=== PATIENT | male | born 1960 | race Caucasian/White ===

== ENCOUNTER 2017-08-16 10:10 | Inpatient (IN) | payer SELFPAY ==
[~2017-08-16] VITALS: Ht 167.6 cm; Wt 91.2 kg
[2017-08-16] MEDS ORDERED: ONDANSETRON HCL 4MG/2ML VIAL IV STA (10:47)
[2017-08-16] MEDS ORDERED: MORPHINE SULFATE 4 MG/ML CPJ (NOT FOR IM USE) IV STA (10:47)
[2017-08-16] MEDS ORDERED: VANCOMYCIN 1 G PREMIX 200 ML IV ONE (11:00)
[2017-08-16] MEDS ORDERED: PIPERACILLIN/TAZ 3.375G PREMIX 50 ML IV ONE (11:00)
[2017-08-16 11:32] LABS: BASOPHILS % 1.2 % (0.0-2.0); EOSINOPHILS % 5.5 % (0.0-5.0); HEMATOCRIT. 40.6 % (42.0-52.0); HEMOGLOBIN. 13.9 g/dL (14.0-18.0); LYMPHOCYTES % 26.6 % (20.0-50.0); MEAN CORPUSCULAR HEMOGLOBIN 30.2 pg (28.0-32.0); MEAN CORPUSCULAR VOLUME 88.2 fL (80.0-94.0); MEAN PLATELET VOLUME 7.9 fl (7.4-10.4); MONOCYTES % 6.4 % (2.0-8.0); NEUTROPHILS % 60.3 % (40.0-76.0); PLATELET 259 x1000/uL (130-400); RED CELL DISTRIBUTION WIDTH 12.9 % (11.6-14.6)
[2017-08-16 11:41] LABS: CHLORIDE 104 mEq/L (98-107)
[2017-08-16 11:43] LABS: PROTHROMBIN TIME 10.5 sec (9.4-11.6)
[2017-08-16 11:46] LABS: ETHANOL BLOOD < 10 mg/dL
[2017-08-16] MEDS ORDERED: CLONIDINE 0.2MG TABLET PO ONE (12:30)
[2017-08-16] MEDS ORDERED: CLONIDINE 0.2MG TABLET PO PRN (15:15)
[2017-08-16] MEDS ORDERED: DEXTROSE 50% WATER 50ML SYRINGE IV PRN (15:15)
[2017-08-16] MEDS ORDERED: DOCUSATE SODIUM 100MG CAPSULE PO PRN (15:15)
[2017-08-16] MEDS ORDERED: MAGNESIUM/ALUMINUM HYDROXIDE/SIMETHICONE 30ML UDC PO PRN (15:15)
[2017-08-16] MEDS ORDERED: PIPERACILLIN/TAZ 3.375G PREMIX 50 ML IV SCH (15:15)
[2017-08-16] MEDS ORDERED: IPRATROPIUM/ALBUTEROL 0.5-3(2.5)MG/3ML NEB INH PRN (15:15)
[2017-08-16] MEDS ORDERED: GUAIFENESIN 200MG/10ML SUGAR FREE UDC PO PRN (15:15)
[2017-08-16] MEDS ORDERED: KETOROLAC 15MG/ML VIAL IV PRN (15:15)
[2017-08-16] MEDS ORDERED: ZOLPIDEM TARTRATE 5MG TABLET PO PRN (15:15)
[2017-08-16] MEDS ORDERED: NA PHOS,M-B/NA PHOS,DI-BA ENEMA 118ML PR PRN (15:15)
[2017-08-16] MEDS ORDERED: ONDANSETRON HCL 4MG/2ML VIAL IV PRN (15:15)
[2017-08-16] MEDS ORDERED: ENOXAPARIN 40MG/0.4ML SYR SUBCUT SCH (15:15)
[2017-08-16] MEDS ORDERED: NITROGLYCERIN 0.4MG TABLET SL SL PRN (15:15)
[2017-08-16] MEDS ORDERED: ACETAMINOPHEN 325MG TABLET PO PRN (15:15)
[2017-08-16] MEDS ORDERED: LORAZEPAM 0.5MG TABLET PO PRN (15:15)
[2017-08-16] MEDS ORDERED: VANCOMYCIN 1 G PREMIX 200 ML IV SCH (15:15)
[2017-08-16 15:20] VITALS: BP 173/88
[2017-08-16] MEDS: AMLODIPINE 10MG TABLET PO SCH (16:12)
[2017-08-16] MEDS: BLOOD SUGAR DIAGNOSTIC STRIP TEST SCH ×2 (16:38→21:39)
[2017-08-16] MEDS: INSULIN LISPRO 100 UNITS/ML SUBCUT SCH ×2 (16:58→21:52)
[2017-08-16] MEDS ORDERED: IBUP-2030 MT (17:00)
[2017-08-16] MEDS ORDERED: VANCOMYCIN 1 G PREMIX 200 ML IV NR (17:00)
[2017-08-16] MEDS ORDERED: SITA1TAB2 MT (17:02)
[2017-08-16] MEDS: PIPERACILLIN/TAZ 3.375G PREMIX 50 ML IV SCH (17:20)
[2017-08-16 20:00] VITALS: BP 132/76
[2017-08-16] MEDS: ENOXAPARIN 30MG/0.3ML SYR SUBCUT SCH (21:38)
[2017-08-16] MEDS: METOPROLOL TARTRATE 25MG TABLET PO SCH (21:39)
[2017-08-16] MEDS: ASCORBIC ACID 500 MG TABLET PO SCH (21:39)
[2017-08-16] MEDS: LISINOPRIL 20MG TABLET PO SCH (21:39)
[2017-08-17] VITALS: BP 128/77
[2017-08-17] MEDS: PIPERACILLIN/TAZ 3.375G PREMIX 50 ML IV SCH ×2 (00:29→05:17)
[2017-08-17] MEDS: VANCOMYCIN 1 G PREMIX 200 ML IV SCH ×2 (01:57→08:03)
[2017-08-17 04:00] VITALS: BP 128/70
[2017-08-17] MEDS: BLOOD SUGAR DIAGNOSTIC STRIP TEST SCH ×2 (06:12→11:59)
[2017-08-17] MEDS: INSULIN LISPRO 100 UNITS/ML SUBCUT SCH ×2 (06:12→12:14)
[2017-08-17 08:00] VITALS: BP_SYST 114; BP_SYST 146; BP_DIAS 70; BP_DIAS 79
[2017-08-17] MEDS: METOPROLOL TARTRATE 25MG TABLET PO SCH (08:04)
[2017-08-17] MEDS: LISINOPRIL 20MG TABLET PO SCH (08:04)
[2017-08-17] MEDS: AMLODIPINE 10MG TABLET PO SCH (08:05)
[2017-08-17] MEDS: ENOXAPARIN 30MG/0.3ML SYR SUBCUT SCH (08:05)
[2017-08-17] MEDS: ASCORBIC ACID 500 MG TABLET PO SCH (08:05)
[2017-08-17] MEDS ORDERED: ZINC SULFATE 220 MG ( 50 ) CAPSULE PO SCH (09:00)
[2017-08-17 12:00] VITALS: BP 135/81
[2017-08-17 12:48] VITALS: BP 135/81
== END 2017-08-17 13:33 | disposition home or self-care (01) | DRG 383 ==
LOC: ER 10:10 → 8WST 12:21 → EDBEDREQ 12:22 → EDBEDREQTM 12:22 → ENRESERV 13:09
PROVIDERS: ADMIT Internal Medicine; ATTEND Internal Medicine
DX: L03.115 Cellulitis of right lower limb (principal); I10 Essential (primary) hypertension; E11.9 Type 2 diabetes mellitus without complications; E66.9 Obesity, unspecified; Z68.32 Body mass index [BMI] 32.0-32.9, adult
CPT/HCPCS: 36415; 71045; 80053; 80061; 82962; 83036; 83605; 83880; 84484; 85025; 85610; 85730; 87040; 93005; 93970; G0482; J1650; J1815; J2270; J2405; J2543; J3370; J7040

== ENCOUNTER 2019-06-29 11:21 | Inpatient (IN) | payer MEDICAID, OTHER ==
[~2019-06-29] VITALS: Ht 172.7 cm; Wt 876.3 kg
[~2019-06-29 11:21] MED LIST: ACET650T37 PO; ALBU18HF2 IH; AMLO10TA80 PO; ASPI-1497 PO; ATEN50TA PO; ATOR20TA65 PO; CYCL25PO21 PO; CYCL5TAB PO; DOCU-150 PO; FAMO-135 PO; GABA-531 PO; HYDR-4135 PO; HYDR-459 PO; IBUP-2030 MT; LISI40TA4 PO; LORA10TA7 PO; NEO/5DRO3 RIGHTEYE; PENT400T16 PO; SITA1TAB2 MT; TIMO5DRO32 LEFTEYE; TOBR5DRO13 RIGHTEYE
[2019-06-29] MEDS ORDERED: AMLO10TA80 PO (11:49)
[2019-06-29] MEDS ORDERED: CARV12.545 PO (11:49)
[2019-06-29] MEDS ORDERED: HYDR100T26 PO (11:49)
[2019-06-29] MEDS ORDERED: SITA1TAB2 PO (11:49)
[2019-06-29 12:28] LABS: BASOPHILS % 1.6 % (0.0-2.0); EOSINOPHILS % 5.4 % (0.0-5.0); HEMATOCRIT. 30.5 % (42.0-52.0); HEMOGLOBIN. 10.1 g/dL (14.0-18.0); LYMPHOCYTES % 14.1 % (20.0-50.0); MEAN CORPUSCULAR VOLUME 90.4 fL (80.0-94.0); MEAN PLATELET VOLUME 8.5 fl (7.4-10.4); MONOCYTES % 7.3 % (2.0-8.0); NEUTROPHILS % 71.6 % (40.0-76.0); PLATELET 220 x1000/uL (130-400); RED BLOOD CELL COUNT 3.37 mill/uL (4.7-6.1); RED CELL DISTRIBUTION WIDTH 14.5 % (11.6-14.6)
[2019-06-29 12:36] LABS: CHLORIDE 110 mEq/L (98-107)
[2019-06-29] MEDS ORDERED: FUROSEMIDE 20MG/2ML VIAL IVP ONE (13:30)
[2019-06-29 14:32] LABS: CLARITY URINE CLEAR (CLEAR); COLOR URINE YELLOW (YELLOW); KETONES URINE NEGATIVE (NEGATIVE); LEUKOCYTE ESTERASE URINE NEGATIVE (NEGATIVE); NITRITE URINE NEGATIVE (NEGATIVE); OCCULT BLOOD URINE NEGATIVE (NEGATIVE); PROTEIN URINE 2+ (NEGATIVE); SPECIFIC GRAVITY URINE 1.014 (1.005-1.030); UROBILINOGEN URINE 0.2 E.U./dL (0.2-1.0)
[2019-06-29] MEDS ORDERED: DEXTROSE 50% WATER 50ML SYRINGE IV PRN (16:15)
[2019-06-29] MEDS ORDERED: ACETAMINOPHEN 325MG TABLET PO PRN (16:15)
[2019-06-29] MEDS ORDERED: ONDANSETRON HCL 4MG/2ML INJ IV PRN (16:15)
[2019-06-29] MEDS ORDERED: HYDROXYZINE 25MG TABLET PO SCH (17:00)
[2019-06-29] MEDS ORDERED: FAMOTIDINE(NEO) 1MG/ML SUSP PO SCH (17:00)
[2019-06-29] MEDS ORDERED: GABAPENTIN 300MG CAPSULE PO SCH (17:00)
[2019-06-29 17:11] LABS: *BARBITURATES SCREEN URINE NEGATIVE (NEGATIVE); *BENZODIAZEPINES SCREEN URINE NEGATIVE (NEGATIVE); *COCAINE SCREEN URINE NEGATIVE (NEGATIVE); CANNABINOID URINE SCREEN NEGATIVE (NEGATIVE); METHADONE URINE SCREEN NEGATIVE (NEGATIVE); OPIATES URINE SCREEN NEGATIVE (NEGATIVE); PHENCYCLIDINE URINE SCREEN NEGATIVE (NEGATIVE)
[2019-06-29 17:13] LABS: *AMPHETAMINES SCREEN URINE NEGATIVE (NEGATIVE)
[2019-06-29] MEDS: FUROSEMIDE 40MG/4ML VIAL IV SCH (18:08)
[2019-06-29] MEDS: INSULIN LISPRO 100 UNITS/ML SUBCUT SCH ×2 (18:20→21:00)
[2019-06-29] MEDS: BLOOD SUGAR DIAGNOSTIC STRIP TEST SCH ×2 (18:26→21:15)
[2019-06-29] MEDS: FAMOTIDINE 20MG TABLET PO SCH (18:26)
[2019-06-29] MEDS: CARVEDILOL 12.5MG TABLET PO SCH (18:45)
[2019-06-29] MEDS ORDERED: NEO/POLYMYX B SULF/DEXAMETH 0.1% OPHTH SUSP 5ML RIGHTEYE SCH (21:00)
[2019-06-29] MEDS ORDERED: ATORVASTATIN CALCIUM 20MG TABLET PO SCH (21:00)
[2019-06-29] MEDS ORDERED: HEPARIN 5000 UNITS/ML VIAL SUBCUT SCH (21:00)
[2019-06-30] MEDS: INSULIN LISPRO 100 UNITS/ML SUBCUT SCH ×4 (08:20→22:13)
[2019-06-30] MEDS ORDERED: ASPIRIN 81MG EC TABLET PO SCH (09:00)
[2019-06-30] MEDS: AMLODIPINE 5MG TABLET PO SCH ×3 (09:00→22:11)
[2019-06-30] MEDS ORDERED: LORATADINE 10MG TABLET PO SCH (09:00)
[2019-06-30] MEDS ORDERED: PENTOXIFYLLINE 400MG TABLET PO SCH (09:00)
[2019-06-30] MEDS ORDERED: DOCUSATE SODIUM 100MG CAPSULE PO SCH (09:00)
[2019-06-30] MEDS: BLOOD SUGAR DIAGNOSTIC STRIP TEST SCH ×4 (09:00→22:12)
[2019-06-30] MEDS ORDERED: SITA1TAB6 PO (10:37)
[2019-06-30] MEDS ORDERED: AMLO10TA80 PO (10:38)
[2019-06-30 10:42] VITALS: BP 149/54
[2019-06-30] MEDS: CARVEDILOL 12.5MG TABLET PO SCH ×2 (11:37→17:25)
[2019-06-30] MEDS: FUROSEMIDE 40MG/4ML VIAL IV SCH ×2 (11:38→17:25)
[2019-06-30] MEDS: ASPIRIN 81MG EC TABLET PO SCH (11:40)
[2019-06-30 12:00] VITALS: BP 164/67
[2019-06-30 16:00] VITALS: BP 132/54
[2019-06-30 17:00] LABS: BASOPHILS % 1.8 % (0.0-2.0); EOSINOPHILS % 5.2 % (0.0-5.0); HEMATOCRIT. 29.6 % (42.0-52.0); HEMOGLOBIN. 9.8 g/dL (14.0-18.0); LYMPHOCYTES % 14.7 % (20.0-50.0); MEAN CORPUSCULAR HEMOGLOBIN 30.1 pg (28.0-32.0); MEAN CORPUSCULAR VOLUME 90.6 fL (80.0-94.0); MEAN PLATELET VOLUME 9.1 fl (7.4-10.4); MONOCYTES % 7.2 % (2.0-8.0); NEUTROPHILS % 71.1 % (40.0-76.0); PLATELET 191 x1000/uL (130-400); RED BLOOD CELL COUNT 3.26 mill/uL (4.7-6.1); RED CELL DISTRIBUTION WIDTH 14.4 % (11.6-14.6)
[2019-06-30 17:10] LABS: CHLORIDE 110 mEq/L (98-107)
[2019-06-30 17:18] LABS: CREATINE KINASE 163 IU/L (39-308)
[2019-06-30] MEDS: FAMOTIDINE 20MG TABLET PO SCH (18:31)
[2019-06-30] MEDS: HYDRALAZINE HCL 100MG TABLET PO SCH (18:31)
[2019-06-30 20:00] VITALS: BP 121/60
[2019-06-30] MEDS: HEPARIN 5000 UNITS/ML VIAL SUBCUT SCH (21:00)
[2019-07-01] VITALS: BP 137/59
[2019-07-01 02:00] VITALS: BP 140/60
[2019-07-01] MEDS: HYDRALAZINE HCL 100MG TABLET PO SCH ×3 (02:00→18:14)
[2019-07-01 04:00] VITALS: BP 123/46
[2019-07-01] MEDS: BLOOD SUGAR DIAGNOSTIC STRIP TEST SCH ×4 (05:19→21:28)
[2019-07-01] MEDS: INSULIN LISPRO 100 UNITS/ML SUBCUT SCH ×4 (05:19→21:00)
[2019-07-01 08:00] VITALS: BP 136/63
[2019-07-01] MEDS: HEPARIN 5000 UNITS/ML VIAL SUBCUT SCH (10:13)
[2019-07-01] MEDS: FUROSEMIDE 40MG/4ML VIAL IV SCH (10:14)
[2019-07-01] MEDS: ASPIRIN 81MG EC TABLET PO SCH (10:14)
[2019-07-01] MEDS: CARVEDILOL 12.5MG TABLET PO SCH ×2 (10:14→17:29)
[2019-07-01] MEDS: AMLODIPINE 5MG TABLET PO SCH ×2 (10:14→21:00)
[2019-07-01 12:13] VITALS: BP 128/62
[2019-07-01 15:59] LABS: BASOPHILS % 1.8 % (0.0-2.0); HEMATOCRIT. 29.7 % (42.0-52.0); HEMOGLOBIN. 9.9 g/dL (14.0-18.0); LYMPHOCYTES % 17.9 % (20.0-50.0); MEAN CORPUSCULAR HEMOGLOBIN 30.3 pg (28.0-32.0); MEAN CORPUSCULAR VOLUME 90.4 fL (80.0-94.0); MEAN PLATELET VOLUME 8.9 fl (7.4-10.4); MONOCYTES % 7.6 % (2.0-8.0); NEUTROPHILS % 67.7 % (40.0-76.0); PLATELET 170 x1000/uL (130-400); RED BLOOD CELL COUNT 3.28 mill/uL (4.7-6.1); RED CELL DISTRIBUTION WIDTH 14.5 % (11.6-14.6)
[2019-07-01 16:00] VITALS: BP_SYST 118; BP_DIAS 58; BP_DIAS 76
[2019-07-01] MEDS: FUROSEMIDE 100MG/10ML VIAL IV SCH (17:29)
[2019-07-01] MEDS: FAMOTIDINE 20MG TABLET PO SCH (18:13)
[2019-07-02] MEDS: HYDRALAZINE HCL 100MG TABLET PO SCH ×3 (02:00→17:31)
[2019-07-02] MEDS: BLOOD SUGAR DIAGNOSTIC STRIP TEST SCH ×4 (06:53→21:41)
[2019-07-02] MEDS: INSULIN LISPRO 100 UNITS/ML SUBCUT SCH ×4 (06:54→21:00)
[2019-07-02 08:00] VITALS: BP 134/93
[2019-07-02 08:11] LABS: ANTI-NUCLEAR ANTIBODIES DIRECT Negative (Negative)
[2019-07-02] MEDS: CARVEDILOL 12.5MG TABLET PO SCH (08:26)
[2019-07-02] MEDS: FUROSEMIDE 100MG/10ML VIAL IV SCH ×2 (08:26→18:44)
[2019-07-02] MEDS: AMLODIPINE 5MG TABLET PO SCH ×2 (08:27→21:40)
[2019-07-02 08:56] LABS: BASOPHILS % 1.4 % (0.0-2.0); EOSINOPHILS % 5.9 % (0.0-5.0); HEMATOCRIT. 28.7 % (42.0-52.0); HEMOGLOBIN. 9.7 g/dL (14.0-18.0); LYMPHOCYTES % 20.2 % (20.0-50.0); MEAN CORPUSCULAR HEMOGLOBIN 30.2 pg (28.0-32.0); MEAN CORPUSCULAR VOLUME 89.8 fL (80.0-94.0); MEAN PLATELET VOLUME 9.1 fl (7.4-10.4); MONOCYTES % 10.1 % (2.0-8.0); NEUTROPHILS % 62.4 % (40.0-76.0); PLATELET 169 x1000/uL (130-400); RED CELL DISTRIBUTION WIDTH 14.5 % (11.6-14.6)
[2019-07-02 12:00] VITALS: BP 101/62
[2019-07-02] MEDS ORDERED: IPRATROPIUM/ALBUTEROL 0.5-3(2.5)MG/3ML NEB HHN PRN (13:45)
[2019-07-02 16:00] VITALS: BP 107/65
[2019-07-02] MEDS ORDERED: METOLAZONE 2.5MG TABLET PO NR (16:00)
[2019-07-02] MEDS: FAMOTIDINE 20MG TABLET PO SCH (18:02)
[2019-07-02 20:00] VITALS: BP 136/68
[2019-07-02] MEDS: CARVEDILOL 6.25 MG TABLET PO SCH (21:39)
[2019-07-03] VITALS: BP 132/59
[2019-07-03] MEDS: HYDRALAZINE HCL 100MG TABLET PO SCH ×3 (01:58→18:29)
[2019-07-03 04:00] VITALS: BP 119/54
[2019-07-03] MEDS: BLOOD SUGAR DIAGNOSTIC STRIP TEST SCH ×4 (07:03→20:32)
[2019-07-03] MEDS: INSULIN LISPRO 100 UNITS/ML SUBCUT SCH ×4 (07:15→20:32)
[2019-07-03 08:11] LABS: BASOPHILS % 2.1 % (0.0-2.0); EOSINOPHILS % 5.8 % (0.0-5.0); HEMATOCRIT. 29.5 % (42.0-52.0); HEMOGLOBIN. 10.2 g/dL (14.0-18.0); LYMPHOCYTES % 23.9 % (20.0-50.0); MEAN CORPUSCULAR HEMOGLOBIN 30.8 pg (28.0-32.0); MEAN PLATELET VOLUME 9.1 fl (7.4-10.4); MONOCYTES % 9.4 % (2.0-8.0); NEUTROPHILS % 58.8 % (40.0-76.0); PLATELET 178 x1000/uL (130-400); RED BLOOD CELL COUNT 3.32 mill/uL (4.7-6.1); RED CELL DISTRIBUTION WIDTH 14.5 % (11.6-14.6)
[2019-07-03] MEDS: FUROSEMIDE 100MG/10ML VIAL IV SCH ×2 (09:07→17:05)
[2019-07-03] MEDS: AMLODIPINE 5MG TABLET PO SCH ×2 (09:08→20:25)
[2019-07-03] MEDS: CARVEDILOL 6.25 MG TABLET PO SCH ×2 (09:08→20:24)
[2019-07-03] MEDS ORDERED: METOLAZONE 2.5MG TABLET PO NR (16:00)
[2019-07-03] MEDS: FAMOTIDINE 20MG TABLET PO SCH (18:29)
[2019-07-03 20:00] VITALS: BP 122/55
[2019-07-03] MEDS: HEPARIN 5000 UNITS/ML VIAL SUBCUT SCH (20:25)
[2019-07-04] VITALS: BP 127/54
[2019-07-04] MEDS: HYDRALAZINE HCL 100MG TABLET PO SCH ×2 (02:36→10:00)
[2019-07-04 04:00] VITALS: BP 124/56
[2019-07-04] MEDS: BLOOD SUGAR DIAGNOSTIC STRIP TEST SCH ×3 (06:52→16:45)
[2019-07-04] MEDS: INSULIN LISPRO 100 UNITS/ML SUBCUT SCH ×3 (06:52→17:15)
[2019-07-04 07:46] LABS: BASOPHILS % 1.6 % (0.0-2.0); EOSINOPHILS % 6.7 % (0.0-5.0); HEMATOCRIT. 27.9 % (42.0-52.0); HEMOGLOBIN. 9.7 g/dL (14.0-18.0); LYMPHOCYTES % 23.5 % (20.0-50.0); MEAN CORPUSCULAR HEMOGLOBIN 30.5 pg (28.0-32.0); MEAN CORPUSCULAR VOLUME 88.1 fL (80.0-94.0); MONOCYTES % 9.9 % (2.0-8.0); NEUTROPHILS % 58.3 % (40.0-76.0); PLATELET 163 x1000/uL (130-400); RED BLOOD CELL COUNT 3.17 mill/uL (4.7-6.1); RED CELL DISTRIBUTION WIDTH 14.5 % (11.6-14.6)
[2019-07-04 08:00] VITALS: BP 113/50
[2019-07-04] MEDS: AMLODIPINE 5MG TABLET PO SCH (08:46)
[2019-07-04] MEDS: HEPARIN 5000 UNITS/ML VIAL SUBCUT SCH (08:47)
[2019-07-04] MEDS: CARVEDILOL 6.25 MG TABLET PO SCH (08:47)
[2019-07-04] MEDS: FUROSEMIDE 100MG/10ML VIAL IV SCH ×2 (08:55→17:00)
[2019-07-04 12:00] VITALS: BP 118/57
[2019-07-04] MEDS ORDERED: CARV12.545 MT (13:29)
[2019-07-04] MEDS ORDERED: FURO80TA87 MT (13:29)
[2019-07-04] MEDS ORDERED: AMLO10TA80 MT (13:29)
[2019-07-04] MEDS ORDERED: HYDR100T26 MT (13:29)
[2019-07-04 16:00] VITALS: BP 121/60
[2019-07-04 16:22] VITALS: BP 121/60
== END 2019-07-04 18:10 | disposition home or self-care (01) | DRG 194 ==
LOC: ER 11:21 → EDBEDREQ 13:21 → EDBEDREQTM 13:21 → EDBEDREQSVC 13:21 → 7WST 14:48 → EDBEDREQ 14:51 → EDBEDREQTM 14:51 → CANRESERV 21:10 → ENRESERV 21:10 → EDBEDREQ 22:27 → EDBEDREQTM 23:43 → EDBEDREQSVC 23:43 → ENRESERV 06-30 07:54 → ER 06-30 09:10 → 5WST 07-01 01:00
PROVIDERS: ADMIT Internal Medicine; ATTEND Internal Medicine
DX: I13.0 Hypertensive heart and chronic kidney disease with heart failure and stage 1 through stage 4 chronic kidney disease, or unspecified chronic kidney disease (principal); J96.00 Acute respiratory failure, unspecified whether with hypoxia or hypercapnia; E43 Unspecified severe protein-calorie malnutrition; N17.9 Acute kidney failure, unspecified; E11.22 Type 2 diabetes mellitus with diabetic chronic kidney disease; D72.1 Eosinophilia; E11.40 Type 2 diabetes mellitus with diabetic neuropathy, unspecified; I50.23 Acute on chronic systolic (congestive) heart failure; E87.5 Hyperkalemia; R18.8 Other ascites; I25.10 Atherosclerotic heart disease of native coronary artery without angina pectoris; I27.20 Pulmonary hypertension, unspecified; N18.9 Chronic kidney disease, unspecified; N43.3 Hydrocele, unspecified; N50.3 Cyst of epididymis; E78.5 Hyperlipidemia, unspecified; I42.9 Cardiomyopathy, unspecified; R26.2 Difficulty in walking, not elsewhere classified; N50.89 Other specified disorders of the male genital organs; I31.3 Pericardial effusion (noninflammatory); I34.0 Nonrheumatic mitral (valve) insufficiency; I36.1 Nonrheumatic tricuspid (valve) insufficiency; Z20.828 Contact with and (suspected) exposure to other viral communicable diseases; Z79.82 Long term (current) use of aspirin; Z79.1 Long term (current) use of non-steroidal anti-inflammatories (NSAID); Z79.899 Other long term (current) drug therapy; Z68.29 Body mass index [BMI] 29.0-29.9, adult; Z79.84 Long term (current) use of oral hypoglycemic drugs
CPT/HCPCS: 36415; 71045; 71250; 76770; 76870; 80048; 80053; 80305; 81003; 82550; 82962; 83036; 83735; 83880; 84484; 85025; 86038; 86160; 87635; 93005; 93306; 93976; 97110; 97116; 97162; 99291; J1644; J1815; J1940; U0003-CS